=== PATIENT | female | born 1985 | race Caucasian/White ===

== ENCOUNTER 2023-06-11 23:55 | Inpatient (IN) | payer OTHER ==
[2023-06-12 01:13] VITALS: BMI 39.0
[2023-06-12] MEDS ORDERED: hydrOXYzine PAMOATE 25 MG CAPSULE (FP) PO PRN (02:03)
[2023-06-12] MEDS ORDERED: NALOXONE HCL (KLOXXADO) 8 MG SPRAY NS PRN (02:03)
[2023-06-12] MEDS ORDERED: MAGNESIUM HYDROX 2400MG/30ML ORAL SUSPENSION 30 ML CUP PO PRN (02:03)
[2023-06-12] MEDS ORDERED: BENZOCAINE/MENTHOL (CHLORASEPTIC ) LOZENGE MM PRN (02:03)
[2023-06-12] MEDS ORDERED: NALOXONE HCL 0.4 MG/ML VIAL IM PRN (02:03)
[2023-06-12] MEDS ORDERED: LOPERAMIDE HCL 2 MG CAPSULE PO PRN (02:03)
[2023-06-12] MEDS ORDERED: NICOTINE POLACRILEX 2 MG GUM BUC PRN (02:03)
[2023-06-12] MEDS ORDERED: DICYCLOMINE HCL 10 MG CAPSULE PO PRN (02:03)
[2023-06-12] MEDS ORDERED: POLYETHYLENE GLYCOL (HEALTHYLAX) 3350 17 GM PACKET PO PRN (02:03)
[2023-06-12] MEDS ORDERED: IBUPROFEN 400 MG TABLET (FP) PO PRN (02:03)
[2023-06-12] MEDS ORDERED: BENZONATATE 200 MG CAPSULE PO PRN (02:03)
[2023-06-12] MEDS ORDERED: guaiFENesin 600 MG TABLET.ER (FP) PO PRN (02:03)
[2023-06-12] MEDS ORDERED: METHOCARBAMOL 500 MG TABLET PO PRN (02:03)
[2023-06-12] MEDS ORDERED: ONDANSETRON *ODT* 4 MG TABLET SL PRN (02:03)
[2023-06-12] MEDS ORDERED: MAG HYDROX/AL HYDROX/SIMETH 30 ML UNIT-DOSE CUP PO PRN (02:03)
[2023-06-12] MEDS ORDERED: BISMUTH SUBSALICYLATE 524 MG/30 ML PO PRN (02:03)
[2023-06-12] MEDS: ACETAMINOPHEN 325 MG TABLET (FP) PO PRN ×3 (04:04→16:43)
[2023-06-12] MEDS: PRENATAL VITAMINS W/ FOLIC ACID TABLET (FP) PO SCH (10:28)
[2023-06-12] MEDS: NICOTINE 14 MG/24 HOURS TOPICAL PATCH TD SCH (10:29)
[2023-06-12] MEDS: amLODIPine BESYLATE 5 MG TABLET (FP) PO SCH (11:04)
[2023-06-12] MEDS: MELATONIN 5 MG TABLETS PO SCH (22:09)
[2023-06-12] MEDS: THIAMINE HCL 100 MG TABLET (FP) PO SCH (22:09)
[2023-06-13] MEDS: IBUPROFEN 600 MG TABLET (FP) PO PRN (01:21)
[2023-06-13] MEDS ORDERED: ALBUTEROL SO4 HFA INHALER IH PRN (10:30)
[2023-06-13] MEDS: PRENATAL VITAMINS W/ FOLIC ACID TABLET (FP) PO SCH (10:48)
[2023-06-13] MEDS: NICOTINE 14 MG/24 HOURS TOPICAL PATCH TD SCH (10:48)
[2023-06-13] MEDS: amLODIPine BESYLATE 5 MG TABLET (FP) PO SCH (10:48)
[2023-06-13] MEDS: FAMOTIDINE 20 MG TABLET PO SCH (11:21)
[2023-06-13] MEDS: TRIAMCINOLONE ACET 0.1% CREAM 15 GM TUBE TP SCH (12:20)
[2023-06-13] MEDS: ACETAMINOPHEN 325 MG TABLET (FP) PO PRN (17:45)
[2023-06-13] MEDS: MELATONIN 5 MG TABLETS PO SCH (22:38)
[2023-06-13] MEDS: THIAMINE HCL 100 MG TABLET (FP) PO SCH (22:38)
[2023-06-14] MEDS: IBUPROFEN 600 MG TABLET (FP) PO PRN ×2 (00:46→09:04)
[2023-06-14] MEDS: amLODIPine BESYLATE 5 MG TABLET (FP) PO SCH (09:04)
[2023-06-14] MEDS: PRENATAL VITAMINS W/ FOLIC ACID TABLET (FP) PO SCH (09:04)
[2023-06-14] MEDS: TRIAMCINOLONE ACET 0.1% CREAM 15 GM TUBE TP SCH (09:05)
[2023-06-14] MEDS: FAMOTIDINE 20 MG TABLET PO SCH (09:05)
[2023-06-14] MEDS: NICOTINE 14 MG/24 HOURS TOPICAL PATCH TD SCH (09:05)
[2023-06-14 13:10] VITALS: BP 118/66; PULSE 111; RESP 20; TEMP 97.3
== END 2023-06-14 15:30 | disposition other institution (70) | DRG 774 ==
LOC: YASAS 23:55 → Y6N 06-12 02:19
PROVIDERS: ADMIT Allergy & Immunology; ATTEND Surgery
PROC: HZ2ZZZZ Detoxification Services for Substance Abuse Treatment (ICD-10-PCS; principal; 2023-06-12)
DX: F10.20 Alcohol dependence, uncomplicated (principal); F14.20 Cocaine dependence, uncomplicated; F17.210 Nicotine dependence, cigarettes, uncomplicated; G47.00 Insomnia, unspecified; I10 Essential (primary) hypertension; J45.20 Mild intermittent asthma, uncomplicated; K21.9 Gastro-esophageal reflux disease without esophagitis; L20.82 Flexural eczema
CPT/HCPCS: 81025; 87635; 87811; 93005; 93010

== ENCOUNTER 2023-06-14 16:07 | Inpatient (IN) | payer OTHER ==
[~2023-06-14 16:07] MED LIST: ALBUTEROL SO4 HFA INHALER IH PRN; BENZOCAINE/MENTHOL (CHLORASEPTIC ) LOZENGE MM PRN; BENZONATATE 200 MG CAPSULE PO PRN; COLLOIDAL OATMEAL 1 BAR EACH TP PRN; IBUPROFEN 400 MG TABLET (FP) PO PRN; LOPERAMIDE HCL 2 MG CAPSULE PO PRN; MAG HYDROX/AL HYDROX/SIMETH 30 ML UNIT-DOSE CUP PO PRN; MAGNESIUM HYDROX 2400MG/30ML ORAL SUSPENSION 30 ML CUP PO PRN; NICOTINE 14 MG/24 HOURS TOPICAL PATCH TD PRN; NICOTINE POLACRILEX 2 MG GUM BUC PRN; POLYETHYLENE GLYCOL (HEALTHYLAX) 3350 17 GM PACKET PO PRN; guaiFENesin 600 MG TABLET.ER (FP) PO PRN; hydrOXYzine PAMOATE 25 MG CAPSULE (FP) PO PRN
[2023-06-14 16:39] VITALS: RESP 18
[2023-06-14] MEDS: IBUPROFEN 600 MG TABLET (FP) PO PRN (18:17)
[2023-06-14] MEDS: THIAMINE HCL 100 MG TABLET (FP) PO SCH (22:21)
[2023-06-14] MEDS: MELATONIN 5 MG TABLETS PO SCH (22:21)
[2023-06-15] MEDS: IBUPROFEN 600 MG TABLET (FP) PO PRN ×3 (03:39→16:46)
[2023-06-15] MEDS: amLODIPine BESYLATE 5 MG TABLET (FP) PO SCH (09:53)
[2023-06-15] MEDS: PRENATAL VITAMINS W/ FOLIC ACID TABLET (FP) PO SCH (09:53)
[2023-06-15] MEDS: TRIAMCINOLONE ACET 0.1% CREAM 15 GM TUBE TP SCH (09:55)
[2023-06-15] MEDS ORDERED: FAMOTIDINE 20 MG TABLET PO SCH (10:00)
[2023-06-15] MEDS: METHOCARBAMOL 500 MG TABLET PO PRN ×2 (11:27→16:49)
[2023-06-15] MEDS: MELATONIN 5 MG TABLETS PO SCH (21:09)
[2023-06-15] MEDS: THIAMINE HCL 100 MG TABLET (FP) PO SCH (21:11)
[2023-06-16] MEDS: METHOCARBAMOL 500 MG TABLET PO PRN (01:18)
[2023-06-16] MEDS: IBUPROFEN 600 MG TABLET (FP) PO PRN (07:47)
[2023-06-16] MEDS ORDERED: PANTOPRAZOLE SODIUM 40 MG VIAL IVPUSH ONE (08:42)
[2023-06-16] MEDS: amLODIPine BESYLATE 5 MG TABLET (FP) PO SCH (09:49)
[2023-06-16] MEDS: PRENATAL VITAMINS W/ FOLIC ACID TABLET (FP) PO SCH (09:49)
[2023-06-16] MEDS ORDERED: AMMONIUM LACTATE 12% LOTION 225 GM BOTTLE TP PRN (10:30)
[2023-06-16] MEDS: TRIAMCINOLONE ACET 0.1% CREAM 15 GM TUBE TP SCH (10:44)
[2023-06-16] MEDS: PANTOPRAZOLE 40 MG TABLET PO SCH (12:48)
[2023-06-16] MEDS: HYDROCORTISONE 0.5% TOPICAL CREAM 30 GM TUBE TP PRN (12:49)
[2023-06-16] MEDS: ACETAMINOPHEN 325 MG TABLET (FP) PO PRN ×2 (14:20→18:49)
[2023-06-16] MEDS: MELATONIN 5 MG TABLETS PO SCH (21:02)
[2023-06-16] MEDS: THIAMINE HCL 100 MG TABLET (FP) PO SCH (21:03)
[2023-06-17] MEDS: ACETAMINOPHEN 325 MG TABLET (FP) PO PRN ×3 (02:39→18:08)
[2023-06-17] MEDS: BENZOCAINE/MENTHOL (CHLORASEPTIC ) LOZENGE MM PRN ×3 (02:46→18:06)
[2023-06-17] MEDS: PRENATAL VITAMINS W/ FOLIC ACID TABLET (FP) PO SCH (09:53)
[2023-06-17] MEDS: amLODIPine BESYLATE 5 MG TABLET (FP) PO SCH (09:53)
[2023-06-17] MEDS: HYDROCORTISONE 0.5% TOPICAL CREAM 30 GM TUBE TP PRN (09:53)
[2023-06-17] MEDS: PANTOPRAZOLE 40 MG TABLET PO SCH (09:53)
[2023-06-17] MEDS: TRIAMCINOLONE ACET 0.1% CREAM 15 GM TUBE TP SCH (09:55)
[2023-06-17] MEDS: METHOCARBAMOL 500 MG TABLET PO PRN ×2 (12:04→21:40)
[2023-06-17] MEDS ORDERED: HYDROCORTISONE 1% TOPICAL OINT 30 GM TUBE TP PRN (14:32)
[2023-06-17] MEDS: LIDOCAINE 4% PATCH TP SCH ×2 (16:00→16:02)
[2023-06-17] MEDS: MELATONIN 5 MG TABLETS PO SCH (21:40)
[2023-06-17] MEDS: THIAMINE HCL 100 MG TABLET (FP) PO SCH (21:40)
[2023-06-17] MEDS ORDERED: LIDOCAINE PATCH REMOVAL MC SCH (22:00)
[2023-06-18] MEDS: ACETAMINOPHEN 325 MG TABLET (FP) PO PRN (05:49)
[2023-06-18 06:55] VITALS: TEMP 96.8
[2023-06-18 09:19] VITALS: BP 123/76; PULSE 91
[2023-06-18] MEDS: PRENATAL VITAMINS W/ FOLIC ACID TABLET (FP) PO SCH (09:35)
[2023-06-18] MEDS: PANTOPRAZOLE 40 MG TABLET PO SCH (09:35)
[2023-06-18] MEDS: amLODIPine BESYLATE 5 MG TABLET (FP) PO SCH (09:35)
[2023-06-18] MEDS: LIDOCAINE 4% PATCH TP SCH (09:36)
[2023-06-18] MEDS: TRIAMCINOLONE ACET 0.1% CREAM 15 GM TUBE TP SCH (09:37)
[2023-06-18] MEDS: IBUPROFEN 600 MG TABLET (FP) PO PRN (09:39)
[2023-06-18 10:34] LABS: INR 1.1 (0.83-1.09); PROTHROMBIN TIME (PATIENT) 12.8 SEC (9.7-13.0)
[2023-06-18 10:35] LABS: BASO % 0.2 % (0-2.0); EOS % 0.6 % (0-4.5); HEMATOCRIT 37.6 % (32.4-45.2); HEMOGLOBIN 12.3 GM/dL (10.7-15.3); LYMPH % 14.9 % (8-40); MCH 31.2 pg (25.7-33.7); MCHC 32.8 g/dl (32.0-36.0); MEAN CELL VOLUME 95.2 fl (80-96); MEAN PLT VOLUME 8.7 fl (7.5-11.1); MONO % 9.9 % (3.8-10.2); NEUT % 74.4 % (42.8-82.8); PLATELET COUNT 314 10^3/uL (134-434); RBC 3.95 M/mm3 (3.60-5.2); WHITE BLOOD COUNT 12.8 K/mm3 (4.0-10.0)
[2023-06-18 10:36] LABS: CALCIUM 8.5 mg/dL (8.5-10.1)
[2023-06-18 10:37] LABS: ALBUMIN 3.5 g/dl (3.4-5.0); BLOOD UREA NITROGEN 13.2 mg/dL (7-18)
[2023-06-18 10:40] LABS: CREATININE 0.7 mg/dL (0.55-1.3)
[2023-06-18 10:41] LABS: BILIRUBIN,TOTAL 0.8 mg/dL (0.2-1)
[2023-06-18 10:47] LABS: CHOLESTEROL 172 mg/dL (50-200)
[2023-06-18 10:48] LABS: LDL CHOLESTEROL (ONLY SJRH) 100 mg/dL (5-100)
[2023-06-18 10:51] LABS: HDL CHOLESTEROL 54 mg/dL (40-60)
[2023-06-18] MEDS ORDERED: AMOXICILLIN 500 MG CAPSULE (FP) PO SCH (14:00)
[2023-06-18] MEDS ORDERED: NYSTATIN POWDER 100,000 UNITS/GM - 15 GM TOPICAL POWDER TP SCH (14:45)
[2023-06-18 17:02] LABS: HIV INTERPRETATION NEGATIVE (NEGATIVE)
== END 2023-06-18 16:13 | disposition left against medical advice (07) | DRG 770 ==
LOC: YASAS 16:07 → Y5N 16:09
PROVIDERS: ADMIT Allergy & Immunology; ATTEND Psychiatry & Neurology Pain Medicine
PROC: HZ42ZZZ Group Counseling for Substance Abuse Treatment, Cognitive-Behavioral (ICD-10-PCS; principal; 2023-06-14)
PROC: HZ42ZZZ Group Counseling for Substance Abuse Treatment, Cognitive-Behavioral (ICD-10-PCS; 2023-06-14)
DX: F10.20 Alcohol dependence, uncomplicated (principal); F14.20 Cocaine dependence, uncomplicated; F17.210 Nicotine dependence, cigarettes, uncomplicated; F10.282 Alcohol dependence with alcohol-induced sleep disorder; F10.280 Alcohol dependence with alcohol-induced anxiety disorder; B37.2 Candidiasis of skin and nail; I10 Essential (primary) hypertension; J45.20 Mild intermittent asthma, uncomplicated; J02.8 Acute pharyngitis due to other specified organisms; K21.9 Gastro-esophageal reflux disease without esophagitis; L20.82 Flexural eczema
CPT/HCPCS: 36415; 71046-TC-FY; 80053; 80061; 82140; 83036; 85025; 85610; 86695; 86696; 86780; 86803; 87070; 87077; 87389

== ENCOUNTER 2023-08-18 17:32 | Inpatient (IN) | payer OTHER ==
[2023-08-18 18:37] VITALS: BMI 38.5
[2023-08-18] MEDS ORDERED: NALOXONE HCL (KLOXXADO) 8 MG SPRAY NS PRN (20:31)
[2023-08-18] MEDS ORDERED: BENZOCAINE/MENTHOL (CHLORASEPTIC ) LOZENGE MM PRN (20:31)
[2023-08-18] MEDS ORDERED: NICOTINE POLACRILEX 4 MG GUM BUC PRN (20:31)
[2023-08-18] MEDS ORDERED: hydrOXYzine PAMOATE 25 MG CAPSULE (FP) PO PRN (20:31)
[2023-08-18] MEDS ORDERED: guaiFENesin 600 MG TABLET.ER (FP) PO PRN (20:31)
[2023-08-18] MEDS ORDERED: NALOXONE HCL 0.4 MG/ML VIAL IM PRN (20:31)
[2023-08-18] MEDS ORDERED: IBUPROFEN 400 MG TABLET (FP) PO PRN (20:31)
[2023-08-18] MEDS ORDERED: BENZONATATE 200 MG CAPSULE PO PRN (20:31)
[2023-08-18] MEDS ORDERED: MAGNESIUM HYDROX 2400MG/30ML ORAL SUSPENSION 30 ML CUP PO PRN (20:31)
[2023-08-18] MEDS ORDERED: POLYETHYLENE GLYCOL (HEALTHYLAX) 3350 17 GM PACKET PO PRN (20:31)
[2023-08-18] MEDS: MELATONIN 5 MG TABLETS PO SCH (22:41)
[2023-08-18] MEDS: THIAMINE HCL 100 MG TABLET (FP) PO SCH (22:42)
[2023-08-18] MEDS: ALBUTEROL SO4 HFA INHALER IH PRN (23:01)
[2023-08-19] MEDS: BISMUTH SUBSALICYLATE 524 MG/30 ML PO PRN (08:33)
[2023-08-19] MEDS: amLODIPine BESYLATE 5 MG TABLET (FP) PO SCH (10:31)
[2023-08-19] MEDS: MAG HYDROX/AL HYDROX/SIMETH 30 ML UNIT-DOSE CUP PO PRN (10:31)
[2023-08-19] MEDS: PRENATAL VITAMINS W/ FOLIC ACID TABLET (FP) PO SCH (10:31)
[2023-08-19] MEDS: NICOTINE 21 MG/24 HOURS TOPICAL PATCH TD SCH (10:31)
[2023-08-19] MEDS: DICYCLOMINE HCL 10 MG CAPSULE PO PRN (10:31)
[2023-08-19 10:56] LABS: CHLORIDE 104 mmol/L (98-107); POTASSIUM 4.1 mmol/L (3.5-5.1); SODIUM 139 mmol/L (136-145)
[2023-08-19 10:58] LABS: ALBUMIN 3.9 g/dl (3.4-5.0); ANION GAP 5 mmol/L (4-13); CALCIUM 9.7 mg/dL (8.5-10.1); CO2 30 mmol/L (21-32); GLUCOSE,RANDOM 94 mg/dL (74-106)
[2023-08-19 11:01] LABS: CREATININE 0.8 mg/dL (0.55-1.3); MCH 31.6 pg (25.7-33.7); MCHC 34.3 g/dl (32.0-36.0); MEAN CELL VOLUME 92.3 fl (80-96); MEAN PLT VOLUME 8.9 fl (7.5-11.1); PLATELET COUNT 310 10^3/uL (134-434); RBC 4.11 M/mm3 (3.60-5.2); SGOT/AST 18 U/L (15-37); SGPT/ALT 20 U/L (13-61); WHITE BLOOD COUNT 7.3 K/mm3 (4.0-10.0)
[2023-08-19 11:03] LABS: BILIRUBIN,TOTAL 0.9 mg/dL (0.2-1); TOT PROT 7.5 g/dl (6.4-8.2)
[2023-08-19 11:04] LABS: ALK PHOS 98 U/L (45-117)
[2023-08-19] MEDS: FAMOTIDINE 20 MG TABLET PO SCH (12:56)
[2023-08-19] MEDS: diazePAM 5 MG TABLET PO PRN (14:22)
[2023-08-19 15:01] LABS: EPI CELLS >36 /uL (0-25.1); HYALINE CASTS 4 /uL (0-3.1); PH,URINE 5.5 (5.0-8.0); URINE APPEARANCE CLOUDY; URINE BACTERIA 4382 /uL (0-1359); URINE BILIRUBIN 1+ (NEGATIVE); URINE COLOR DK YELLOW; URINE GLUCOSE (UA) NEGATIVE (NEGATIVE); URINE KETONE TRACE (NEGATIVE); URINE LEUK ESTERASE TRACE (NEGATIVE); URINE NITRITE NEGATIVE (NEGATIVE); URINE PROTEIN TRACE (NEGATIVE); URINE RBC 2 /uL (0-23.9); URINE UROBILINOGEN 0.2 mg/dL (0.2-1.0); URINE WBC 42 /uL (0-25.8)
[2023-08-19 15:18] LABS: URINE CRYSTALS CA OXALATE FEW /hpf
[2023-08-19] MEDS: diazePAM 5 MG TABLET PO SCH (17:15)
[2023-08-19] MEDS ORDERED: SUVOREXANT 5 MG TABLET PO PRN (22:00)
[2023-08-19] MEDS: TOLNAFTATE 1% CREAM 15 GM TUBE TP SCH (22:21)
[2023-08-20] MEDS: ONDANSETRON *ODT* 4 MG TABLET SL PRN (06:35)
[2023-08-20] MEDS: METHOCARBAMOL 500 MG TABLET PO PRN (06:35)
[2023-08-20] MEDS: ACETAMINOPHEN 325 MG TABLET (FP) PO PRN (06:36)
[2023-08-20] MEDS ORDERED: LORazepam 1 MG TABLET PO PRN (11:56)
[2023-08-20] MEDS: LOPERAMIDE HCL 2 MG CAPSULE PO PRN (13:37)
[2023-08-20] MEDS: LORazepam 2 MG TABLET PO SCH (17:22)
[2023-08-21] MEDS ORDERED: LORazepam 0.5 MG TABLET PO PRN
[2023-08-21] MEDS: LORazepam 1 MG TABLET PO SCH (05:48)
[2023-08-21] MEDS ORDERED: diazePAM 5 MG TABLET PO SCH (06:00)
[2023-08-22] MEDS: LORazepam 0.5 MG TABLET PO SCH (05:36)
[2023-08-22] MEDS ORDERED: diazePAM 5 MG TABLET PO SCH (06:00)
[2023-08-22] MEDS: COLLOIDAL OATMEAL 1 EACH PACKET TP SCH (15:16)
[2023-08-23] MEDS: IBUPROFEN 600 MG TABLET (FP) PO PRN (05:59)
[2023-08-23] MEDS: LORazepam 0.5 MG TABLET PO ONE (06:00)
[2023-08-23] MEDS: LACTULOSE 20 GM/30 ML UDC (FOR ORAL USE ONLY) PO SCH (06:00)
[2023-08-23] MEDS ORDERED: diazePAM 5 MG TABLET PO ONE (06:00)
[2023-08-23 06:14] VITALS: BP 126/69; PULSE 73; RESP 17; TEMP 97.8
== END 2023-08-23 08:32 | disposition home or self-care (01) | DRG 774 ==
LOC: YASAS 17:32 → Y3N 22:10
PROVIDERS: ADMIT Allergy & Immunology; ATTEND Surgery
PROC: HZ2ZZZZ Detoxification Services for Substance Abuse Treatment (ICD-10-PCS; principal; 2023-08-18)
DX: F10.230 Alcohol dependence with withdrawal, uncomplicated (principal); F14.10 Cocaine abuse, uncomplicated; G47.00 Insomnia, unspecified; G47.30 Sleep apnea, unspecified; I10 Essential (primary) hypertension; J45.20 Mild intermittent asthma, uncomplicated; K21.9 Gastro-esophageal reflux disease without esophagitis; S92.351D Displaced fracture of fifth metatarsal bone, right foot, subsequent encounter for fracture with routine healing; X58.XXXD Exposure to other specified factors, subsequent encounter
CPT/HCPCS: 36415; 80053; 80307; 81003; 81025; 82140; 85027; 86780; 87635; Q0162

== ENCOUNTER 2023-10-12 15:06 | Inpatient (IN) | payer OTHER ==
[2023-10-12 15:39] VITALS: BMI 39.8
[2023-10-12] MEDS ORDERED: ALBUTEROL SO4 HFA INHALER IH PRN (18:06)
[2023-10-12] MEDS ORDERED: NICOTINE POLACRILEX 2 MG GUM BUC PRN (18:12)
[2023-10-12] MEDS ORDERED: DICYCLOMINE HCL 10 MG CAPSULE PO PRN (18:12)
[2023-10-12] MEDS ORDERED: BENZOCAINE/MENTHOL (CHLORASEPTIC ) LOZENGE MM PRN (18:12)
[2023-10-12] MEDS ORDERED: MAGNESIUM HYDROX 2400MG/30ML ORAL SUSPENSION 30 ML CUP PO PRN (18:12)
[2023-10-12] MEDS ORDERED: ONDANSETRON *ODT* 4 MG TABLET SL PRN (18:12)
[2023-10-12] MEDS ORDERED: guaiFENesin 600 MG TABLET.ER (FP) PO PRN (18:12)
[2023-10-12] MEDS ORDERED: IBUPROFEN 400 MG TABLET (FP) PO PRN (18:12)
[2023-10-12] MEDS ORDERED: BENZONATATE 200 MG CAPSULE PO PRN (18:12)
[2023-10-12] MEDS ORDERED: P-EPHED 60MG/TRIPROLIDI 2.5MG TABLET PO PRN (18:12)
[2023-10-12] MEDS ORDERED: POLYETHYLENE GLYCOL (HEALTHYLAX) 3350 17 GM PACKET PO PRN (18:12)
[2023-10-12] MEDS ORDERED: BISMUTH SUBSALICYLATE 524 MG/30 ML PO PRN (18:12)
[2023-10-12] MEDS ORDERED: MAG HYDROX/AL HYDROX/SIMETH 30 ML UNIT-DOSE CUP PO PRN (18:12)
[2023-10-12] MEDS: hydrOXYzine PAMOATE 25 MG CAPSULE (FP) PO PRN (22:11)
[2023-10-12] MEDS: METHOCARBAMOL 500 MG TABLET PO PRN (22:11)
[2023-10-12] MEDS: MELATONIN 5 MG TABLETS PO SCH (22:11)
[2023-10-12] MEDS: THIAMINE HCL 100 MG TABLET (FP) PO SCH (22:11)
[2023-10-13] MEDS: amLODIPine BESYLATE 5 MG TABLET (FP) PO SCH (09:47)
[2023-10-13] MEDS ORDERED: ALBUTEROL SO4 HFA INHALER IH SCH (10:00)
[2023-10-13] MEDS: PRENATAL VITAMINS W/ FOLIC ACID TABLET (FP) PO SCH (10:30)
[2023-10-13] MEDS: FAMOTIDINE 20 MG TABLET PO SCH (10:30)
[2023-10-13] MEDS: diazePAM 5 MG TABLET PO SCH (10:31)
[2023-10-13] MEDS: NICOTINE 14 MG/24 HOURS TOPICAL PATCH TD SCH (11:07)
[2023-10-13 12:14] LABS: POTASSIUM 4.6 mmol/L (3.5-5.1)
[2023-10-13 12:20] LABS: ALBUMIN 3.1 g/dl (3.4-5.0); BLOOD UREA NITROGEN 13.9 mg/dL (7-18); CALCIUM 8.3 mg/dL (8.5-10.1)
[2023-10-13 12:23] LABS: CREATININE 0.6 mg/dL (0.55-1.3)
[2023-10-13 12:25] LABS: BILIRUBIN,TOTAL 0.7 mg/dL (0.2-1)
[2023-10-13 12:30] LABS: HEMATOCRIT 36.8 % (32.4-45.2); HEMOGLOBIN 12.5 GM/dL (10.7-15.3); MCH 31.6 pg (25.7-33.7); MEAN CELL VOLUME 92.9 fl (80-96); MEAN PLT VOLUME 8.9 fl (7.5-11.1); PLATELET COUNT 309 10^3/uL (134-434); RBC 3.96 M/mm3 (3.60-5.2); RDW 14.8 % (11.6-15.6); WHITE BLOOD COUNT 5.9 K/mm3 (4.0-10.0)
[2023-10-13] MEDS: IBUPROFEN 600 MG TABLET (FP) PO PRN (13:48)
[2023-10-13] MEDS: LOPERAMIDE HCL 2 MG CAPSULE PO PRN (13:48)
[2023-10-14] MEDS: diazePAM 5 MG TABLET PO SCH (06:22)
[2023-10-15] MEDS: diazePAM 5 MG TABLET PO SCH (06:21)
[2023-10-15] MEDS: TOLNAFTATE 1% CREAM 15 GM TUBE TP SCH (21:05)
[2023-10-16] MEDS: diazePAM 5 MG TABLET PO ONE (06:26)
[2023-10-16] MEDS: ACETAMINOPHEN 325 MG TABLET (FP) PO PRN (06:27)
[2023-10-16 07:01] VITALS: BP 116/64; PULSE 74; RESP 16; TEMP 97.6
== END 2023-10-16 09:00 | disposition home or self-care (01) | DRG 774 ==
LOC: YASAS 15:06 → Y6N 18:17
PROVIDERS: ADMIT Allergy & Immunology; ATTEND Surgery
PROC: HZ2ZZZZ Detoxification Services for Substance Abuse Treatment (ICD-10-PCS; principal; 2023-10-12)
DX: F10.230 Alcohol dependence with withdrawal, uncomplicated (principal); F14.20 Cocaine dependence, uncomplicated; F17.210 Nicotine dependence, cigarettes, uncomplicated; G47.30 Sleep apnea, unspecified; I10 Essential (primary) hypertension; J45.20 Mild intermittent asthma, uncomplicated; K21.9 Gastro-esophageal reflux disease without esophagitis; B35.3 Tinea pedis
CPT/HCPCS: 36415; 80053; 80305; 80307; 81025; 85027; 86780

== ENCOUNTER 2023-11-22 13:49 | Inpatient (IN) | payer OTHER ==
[2023-11-22 14:51] VITALS: BMI 38.7
[2023-11-22] MEDS ORDERED: METHOCARBAMOL 500 MG TABLET PO PRN (16:04)
[2023-11-22] MEDS ORDERED: IBUPROFEN 600 MG TABLET (FP) PO PRN (16:04)
[2023-11-22] MEDS ORDERED: MAG HYDROX/AL HYDROX/SIMETH 30 ML UNIT-DOSE CUP PO PRN (16:04)
[2023-11-22] MEDS ORDERED: POLYETHYLENE GLYCOL (HEALTHYLAX) 3350 17 GM PACKET PO PRN (16:04)
[2023-11-22] MEDS ORDERED: NALOXONE HCL 0.4 MG/ML VIAL IM PRN (16:04)
[2023-11-22] MEDS ORDERED: ONDANSETRON *ODT* 4 MG TABLET SL PRN (16:04)
[2023-11-22] MEDS ORDERED: BISMUTH SUBSALICYLATE 524 MG/30 ML PO PRN (16:04)
[2023-11-22] MEDS ORDERED: guaiFENesin 600 MG TABLET.ER (FP) PO PRN (16:04)
[2023-11-22] MEDS ORDERED: IBUPROFEN 400 MG TABLET (FP) PO PRN (16:04)
[2023-11-22] MEDS ORDERED: ACETAMINOPHEN 325 MG TABLET (FP) PO PRN (16:04)
[2023-11-22] MEDS ORDERED: NALOXONE HCL (KLOXXADO) 8 MG SPRAY NS PRN (16:04)
[2023-11-22] MEDS ORDERED: BENZOCAINE/MENTHOL (CHLORASEPTIC ) LOZENGE MM PRN (16:04)
[2023-11-22] MEDS ORDERED: MAGNESIUM HYDROX 2400MG/30ML ORAL SUSPENSION 30 ML CUP PO PRN (16:04)
[2023-11-22] MEDS ORDERED: DICYCLOMINE HCL 10 MG CAPSULE PO PRN (16:04)
[2023-11-22] MEDS ORDERED: BENZONATATE 200 MG CAPSULE PO PRN (16:04)
[2023-11-22] MEDS ORDERED: LORazepam 1 MG TABLET PO PRN (16:15)
[2023-11-22] MEDS: LORazepam 2 MG TABLET PO SCH (22:54)
[2023-11-22] MEDS: MELATONIN 5 MG TABLETS PO SCH (22:55)
[2023-11-22] MEDS: THIAMINE 100 MG TABLET PO SCH (22:55)
[2023-11-23] MEDS: LOPERAMIDE HCL 2 MG CAPSULE PO PRN (09:06)
[2023-11-23] MEDS ORDERED: ALBUTEROL SO4 HFA INHALER IH SCH (09:45)
[2023-11-23] MEDS: PRENATAL VITAMINS W/ FOLIC ACID TABLET (FP) PO SCH (10:23)
[2023-11-23] MEDS: amLODIPine BESYLATE 5 MG TABLET (FP) PO SCH (10:23)
[2023-11-23] MEDS: FAMOTIDINE 20 MG TABLET PO SCH (10:23)
[2023-11-23 13:04] LABS: HEMATOCRIT 38.4 % (32.4-45.2); HEMOGLOBIN 13.2 GM/dL (10.7-15.3); MCH 31.5 pg (25.7-33.7); MCHC 34.2 g/dl (32.0-36.0); MEAN CELL VOLUME 92.1 fl (80-96); PLATELET COUNT 275 10^3/uL (134-434); RBC 4.17 M/mm3 (3.60-5.2); RDW 14.9 % (11.6-15.6); WHITE BLOOD COUNT 5.8 K/mm3 (4.0-10.0)
[2023-11-23 13:19] LABS: CHLORIDE 104 mmol/L (98-107); SODIUM 135 mmol/L (136-145)
[2023-11-23 13:24] LABS: ANION GAP 5 mmol/L (4-13); BLOOD UREA NITROGEN 14.3 mg/dL (7-18); CALCIUM 8.7 mg/dL (8.5-10.1); CO2 26 mmol/L (21-32); GLUCOSE,RANDOM 116 mg/dL (74-106)
[2023-11-23 13:25] LABS: ALBUMIN 3.4 g/dl (3.4-5.0)
[2023-11-23 13:27] LABS: CREATININE 0.7 mg/dL (0.55-1.3); SGOT/AST 21 U/L (15-37); SGPT/ALT 23 U/L (13-61)
[2023-11-23 13:29] LABS: TOT PROT 6.8 g/dl (6.4-8.2)
[2023-11-23 13:30] LABS: ALK PHOS 76 U/L (45-117)
[2023-11-23 15:12] LABS: HIV INTERPRETATION NEGATIVE (NEGATIVE)
[2023-11-23] MEDS: hydrOXYzine PAMOATE 25 MG CAPSULE (FP) PO PRN (17:44)
[2023-11-24] MEDS: LORazepam 1 MG TABLET PO SCH (05:14)
[2023-11-24] MEDS: LORazepam 0.5 MG TABLET PO SCH (18:07)
[2023-11-25] MEDS ORDERED: LORazepam 0.5 MG TABLET PO PRN
[2023-11-25] MEDS: LORazepam 0.5 MG TABLET PO SCH (05:31)
[2023-11-25 07:14] VITALS: TEMP 97.6
[2023-11-25 10:55] VITALS: BP 117/75; PULSE 99; RESP 18
[2023-11-26] MEDS ORDERED: LORazepam 0.5 MG TABLET PO ONE (05:00)
== END 2023-11-25 10:55 | disposition home or self-care (01) | DRG 774 ==
LOC: YASAS 13:49 → Y6N 17:28
PROVIDERS: ADMIT Allergy & Immunology; ATTEND Surgery
PROC: HZ2ZZZZ Detoxification Services for Substance Abuse Treatment (ICD-10-PCS; principal; 2023-11-22)
DX: F10.230 Alcohol dependence with withdrawal, uncomplicated (principal); F14.20 Cocaine dependence, uncomplicated; F17.210 Nicotine dependence, cigarettes, uncomplicated; F10.282 Alcohol dependence with alcohol-induced sleep disorder; F10.280 Alcohol dependence with alcohol-induced anxiety disorder; G47.00 Insomnia, unspecified; I10 Essential (primary) hypertension; J45.20 Mild intermittent asthma, uncomplicated; K21.9 Gastro-esophageal reflux disease without esophagitis; L20.82 Flexural eczema; R45.851 Suicidal ideations
CPT/HCPCS: 36415; 80053; 80305; 80307; 81025; 85027; 86780; 87389; 93005; 93010

== ENCOUNTER 2024-05-25 02:07 | Inpatient (IN) | payer OTHER ==
[2024-05-25] MEDS ORDERED: POLYETHYLENE GLYCOL (HEALTHYLAX) 3350 17 GM PACKET PO PRN (02:21)
[2024-05-25] MEDS ORDERED: ONDANSETRON *ODT* 4 MG TABLET SL PRN (02:21)
[2024-05-25] MEDS ORDERED: guaiFENesin 600 MG TABLET.ER (FP) PO PRN (02:21)
[2024-05-25] MEDS ORDERED: IBUPROFEN 400 MG TABLET (FP) PO PRN (02:21)
[2024-05-25] MEDS ORDERED: NALOXONE (NARCAN) HCL 4 MG/0.1 ML SPRAY NS PRN (02:21)
[2024-05-25] MEDS ORDERED: BENZOCAINE/MENTHOL (CHLORASEPTIC ) LOZENGE MM PRN (02:21)
[2024-05-25] MEDS ORDERED: MAGNESIUM HYDROX 2400MG/30ML ORAL SUSPENSION 30 ML CUP PO PRN (02:21)
[2024-05-25] MEDS ORDERED: BENZONATATE 200 MG CAPSULE PO PRN (02:21)
[2024-05-25] MEDS ORDERED: NICOTINE POLACRILEX 4 MG GUM BUC PRN (02:21)
[2024-05-25] MEDS ORDERED: DICYCLOMINE HCL 10 MG CAPSULE PO PRN (02:21)
[2024-05-25] MEDS ORDERED: ACETAMINOPHEN 325 MG TABLET (FP) PO PRN (02:21)
[2024-05-25 02:31] VITALS: BMI 42.2
[2024-05-25] MEDS ORDERED: IBUPROFEN 600 MG TABLET (FP) PO ONE (04:41)
[2024-05-25] MEDS ORDERED: MELATONIN 5 MG TABLETS ONE (04:41)
[2024-05-25] MEDS: IBUPROFEN 600 MG TABLET (FP) PO PRN (04:49)
[2024-05-25] MEDS ORDERED: PRENATAL VITAMINS W/ FOLIC ACID TABLET (FP) PO ONE (10:03)
[2024-05-25] MEDS ORDERED: amLODIPine BESYLATE 5 MG TABLET (FP) ONE (10:03)
[2024-05-25] MEDS: amLODIPine BESYLATE 5 MG TABLET (FP) PO SCH (10:04)
[2024-05-25] MEDS: PRENATAL VITAMINS W/ FOLIC ACID TABLET (FP) PO SCH (10:04)
[2024-05-25] MEDS: FAMOTIDINE 20 MG TABLET PO SCH (10:04)
[2024-05-25] MEDS: NICOTINE 21 MG/24 HOURS TOPICAL PATCH TD SCH (10:05)
[2024-05-25] MEDS ORDERED: LOPERAMIDE HCL 2 MG CAPSULE ONE (10:38)
[2024-05-25] MEDS: LOPERAMIDE HCL 2 MG CAPSULE PO PRN (10:40)
[2024-05-25] MEDS: THIAMINE 100 MG TABLET PO SCH (22:33)
[2024-05-25] MEDS: MELATONIN 5 MG TABLETS PO SCH (22:33)
[2024-05-25] MEDS: METHOCARBAMOL 500 MG TABLET PO PRN (22:34)
[2024-05-25] MEDS: CLOTRIMAZOLE 1% CREAM TP SCH (22:35)
[2024-05-26] MEDS: hydrOXYzine PAMOATE 25 MG CAPSULE (FP) PO PRN (05:12)
[2024-05-26] MEDS ORDERED: diazePAM 5 MG TABLET PO PRN (09:56)
[2024-05-26] MEDS: diazePAM 5 MG TABLET PO SCH (11:12)
[2024-05-26] MEDS: BISMUTH SUBSALICYLATE 524 MG/30 ML PO PRN (17:17)
[2024-05-27] MEDS: MAG HYDROX/AL HYDROX/SIMETH 30 ML UNIT-DOSE CUP PO PRN (19:46)
[2024-05-28] MEDS: diazePAM 5 MG TABLET PO SCH (06:59)
[2024-05-28 09:53] VITALS: BP 119/71; PULSE 90; RESP 20; TEMP 98.2
[2024-05-28] MEDS: NALOXONE (NYS OPIOID OVERDOSE PROGRAM) 4 MG/0.1 ML SPRAY NS SCH (10:49)
[2024-05-29] MEDS ORDERED: diazePAM 5 MG TABLET PO SCH (06:00)
[2024-05-30] MEDS ORDERED: diazePAM 5 MG TABLET PO ONE (06:00)
== END 2024-05-28 11:36 | disposition home or self-care (01) | DRG 774 ==
LOC: YASAS 02:07 → Y3N 12:07
PROVIDERS: ADMIT Allergy & Immunology; ATTEND Surgery
PROC: HZ2ZZZZ Detoxification Services for Substance Abuse Treatment (ICD-10-PCS; principal; 2024-05-25)
DX: F10.230 Alcohol dependence with withdrawal, uncomplicated (principal); F14.20 Cocaine dependence, uncomplicated; F17.210 Nicotine dependence, cigarettes, uncomplicated; G47.30 Sleep apnea, unspecified; I10 Essential (primary) hypertension; J45.20 Mild intermittent asthma, uncomplicated; K21.9 Gastro-esophageal reflux disease without esophagitis
CPT/HCPCS: 80305; 81025

== ENCOUNTER 2024-11-25 15:26 | Inpatient (IN) | payer OTHER ==
[2024-11-25 16:41] VITALS: BMI 42.7
[2024-11-25] MEDS ORDERED: guaiFENesin 600 MG TABLET.ER (FP) PO PRN (17:09)
[2024-11-25] MEDS ORDERED: IBUPROFEN 400 MG TABLET (FP) PO PRN (17:09)
[2024-11-25] MEDS ORDERED: DICYCLOMINE HCL 10 MG CAPSULE PO PRN (17:09)
[2024-11-25] MEDS ORDERED: POLYETHYLENE GLYCOL (HEALTHYLAX) 3350 17 GM PACKET PO PRN (17:09)
[2024-11-25] MEDS ORDERED: MAGNESIUM HYDROX 2400MG/30ML ORAL SUSPENSION 30 ML CUP PO PRN (17:09)
[2024-11-25] MEDS ORDERED: NALOXONE (NARCAN) HCL 4 MG/0.1 ML SPRAY NS PRN (17:09)
[2024-11-25] MEDS ORDERED: BENZONATATE 200 MG CAPSULE PO PRN (17:09)
[2024-11-25] MEDS ORDERED: ACETAMINOPHEN 325 MG TABLET (FP) PO PRN (17:09)
[2024-11-25] MEDS ORDERED: MAG HYDROX/AL HYDROX/SIMETH 30 ML UNIT-DOSE CUP PO PRN (17:09)
[2024-11-25] MEDS ORDERED: IBUPROFEN 600 MG TABLET (FP) PO PRN (17:09)
[2024-11-25] MEDS ORDERED: ONDANSETRON *ODT* 4 MG TABLET SL PRN (17:09)
[2024-11-25] MEDS ORDERED: BISMUTH SUBSALICYLATE 524 MG/30 ML PO PRN (17:09)
[2024-11-25] MEDS ORDERED: BENZOCAINE/MENTHOL (CHLORASEPTIC ) LOZENGE MM PRN (17:09)
[2024-11-25] MEDS ORDERED: diazePAM 5 MG TABLET PO PRN (17:09)
[2024-11-25] MEDS: diazePAM 5 MG TABLET PO SCH (22:26)
[2024-11-25] MEDS: MELATONIN 5 MG TABLETS PO SCH (22:27)
[2024-11-25] MEDS: THIAMINE 100 MG TABLET PO SCH (22:27)
[2024-11-26] MEDS: LOPERAMIDE HCL 2 MG CAPSULE PO PRN (05:33)
[2024-11-26] MEDS: PRENATAL VITAMINS W/ FOLIC ACID TABLET (FP) PO SCH (10:24)
[2024-11-26] MEDS: amLODIPine BESYLATE 5 MG TABLET (FP) PO SCH (12:10)
[2024-11-26] MEDS: METHOCARBAMOL 500 MG TABLET PO PRN (12:13)
[2024-11-26] MEDS: hydrOXYzine PAMOATE 25 MG CAPSULE (FP) PO PRN (12:13)
[2024-11-26] MEDS: FAMOTIDINE 20 MG TABLET PO SCH (16:16)
[2024-11-26 16:53] VITALS: RESP 18
[2024-11-26 20:53] VITALS: BP 122/63; PULSE 99; TEMP 97.8
[2024-11-27] MEDS ORDERED: diazePAM 5 MG TABLET PO SCH (06:00)
[2024-11-28] MEDS ORDERED: diazePAM 5 MG TABLET PO SCH (06:00)
[2024-11-29] MEDS ORDERED: diazePAM 5 MG TABLET PO ONE (06:00)
== END 2024-11-26 22:40 | disposition left against medical advice (07) | DRG 770 ==
LOC: YASAS 15:26 → Y6N 17:30
PROVIDERS: ADMIT Psychiatry & Neurology Pain Medicine; ATTEND Allergy & Immunology
PROC: HZ2ZZZZ Detoxification Services for Substance Abuse Treatment (ICD-10-PCS; principal; 2024-11-25)
DX: F10.20 Alcohol dependence, uncomplicated (principal); F14.20 Cocaine dependence, uncomplicated; F17.210 Nicotine dependence, cigarettes, uncomplicated; I10 Essential (primary) hypertension; J45.909 Unspecified asthma, uncomplicated; K21.9 Gastro-esophageal reflux disease without esophagitis
CPT/HCPCS: 80305; 80307; 81025; 93005; 93010